=== PATIENT | female | born 1980 | race Caucasian/White ===

== ENCOUNTER 2021-12-22 14:10 | Inpatient (IN) | payer OTHER ==
[~2021-12-22] VITALS: Ht 160 cm; Wt 48.7 kg
--- NOTE | 2021-12-23 07:02 | EKG ---
[facility] [address] [facility] [place], [place] [address] Signed Normal sinus rhythm ST \T\ T wave abnormality, consider inferior ischemia ST \T\ T wave abnormality, consider anterolateral ischemia Abnormal ECG No previous ECGs available Confirmed by CARMEN RUDOLPH MD ([id number] on 12/23/2021 7:02:42 AM Electronically Signed By: CARMEN RUDOLPH MD 12/23/21 0702 PATIENT NAME: CANDIDA AKHTAR Electrocardiogram DATE OF : 80 PHYSICIAN: CARMEN RUDOLPH MD REPORT #: [id number] REPORT IS CONFIDENTIAL AND NOT TO BE RELEASED WITHOUT AUTHORIZATION
== END 2021-12-24 09:20 | disposition home or self-care (01) | DRG 641 ==
LOC: ED 14:10 → MS 18:22
PROVIDERS: ADMIT Internal Medicine; ATTEND Internal Medicine
DX: E87.6 Hypokalemia (principal); R64 Cachexia; Z68.1 Body mass index [BMI] 19.9 or less, adult; Z20.822 Contact with and (suspected) exposure to COVID-19; E86.0 Dehydration; H53.8 Other visual disturbances; Z88.0 Allergy status to penicillin; Z87.891 Personal history of nicotine dependence
CPT/HCPCS: 36415; 70450; 71045; 80048; 80053; 81001; 83690; 83735; 84439; 84443; 84484; 85025; 96365; 96366; 99285-25; C9803; J3475; J3480; J7030; J7060; U0003